=== PATIENT | male | born 1990 | race Caucasian/White ===

== ENCOUNTER 2018-12-25 22:23 | Emergency (ER) | payer OTHER, MEDICAID ==
[2018-12-25 23:36] LABS: ADD MAN DIFF? NO
[2018-12-25 23:39] LABS: WHITE BLOOD COUNT 14.7 10^3/ul (4.8-10.8)
[2018-12-25 23:39] LABS: BASOPHIL # 0.1 10^3/ul (0.0-0.1); BASOPHILS % 0.3 % (0.0-2.0); EOSINOPHILS # 0.1 10^3/ul (0.0-0.5); EOSINOPHILS % 0.8 % (0.0-7.0); HEMATOCRIT 45.9 % (42.0-52.0); HEMOGLOBIN 15.5 g/dl (14.0-18.0); LYMPHOCYTES # 4.5 10^3/ul (0.8-2.9); LYMPHOCYTES % 30.6 % (15.0-51.0); MEAN CORPUSCULAR HEMOGLOBIN 31.3 pg (29.0-33.0); MEAN CORPUSCULAR HGB CONC 33.8 g/dl (32.0-37.0); MEAN CORPUSCULAR VOLUME 92.7 fl (82.0-101.0); MEAN PLATELET VOLUME 9.7 fl (7.4-10.4); MONOCYTES % 6.9 % (0.0-11.0); NEUTROPHIL # 8.9 10^3/ul (1.6-7.5); PLATELET COUNT 342 10^3/UL (140-415); RED BLOOD COUNT 4.95 10^6/ul (4.70-6.10); RED CELL DISTRIBUTION WIDTH 13.4 % (11.5-14.5)
[2018-12-25] MEDS: ONDANSETRON 4 MG INJ IV (23:47)
[2018-12-25] MEDS: morphine 4 MG/ML VIAL IV (23:47)
[2018-12-25] MEDS: SOD CHLORIDE 0.9% 1,000 ML IV (23:48)
[2018-12-25 23:58] LABS: INR 0.89; PROTIME 12.1 Sec (11.9-14.9); PT RATIO 0.9
[2018-12-25 23:59] LABS: PARTIAL THROMBOPLASTIN TIME 32.8 Sec (23.0-35.0)
[2018-12-26 00:02] LABS: ALANINE AMINOTRANSFERASE 32 IU/L (13-69); ALBUMIN 4.7 g/dl (3.3-4.9); ALBUMIN/GLOBULIN RATIO 1.42; ALKALINE PHOSPHATASE 64 IU/L (42-121); ANION GAP 10 (5-13); ASPARTATE AMINO TRANSFERASE 31 IU/L (15-46); BILIRUBIN,INDIRECT 0.3 mg/dl (0-1.1); BILIRUBIN,TOTAL 0.3 mg/dl (0.2-1.3); BLOOD UREA NITROGEN 21 mg/dl (7-20); CALCIUM 9.6 mg/dl (8.4-10.2); CARBON DIOXIDE 22 mmol/L (21-31); CHLORIDE 108 mmol/L (97-110); CREATININE 0.86 mg/dl (0.61-1.24); Estimated GFR > 60 mL/min (>60); GLUCOSE 106 mg/dl (70-220); LIPASE 158 U/L (23-300); POTASSIUM 3.9 mmol/L (3.5-5.1); SODIUM 140 mmol/L (135-144)
[2018-12-26] MEDS ORDERED: SOD CHLORIDE 0.9% 100 ML (00:18)
[2018-12-26] MEDS ORDERED: IOHEXOL 300MG/ML 150 ML BTL (00:18)
[2018-12-26] MEDS: ACETAMINOPHEN 500 MG TAB PO (02:23)
== END 2018-12-26 02:35 | disposition home or self-care (01) ==
LOC: E/R 12-26 02:35
DX: S30.1XXA Contusion of abdominal wall, initial encounter (principal); S00.83XA Contusion of other part of head, initial encounter; S20.219A Contusion of unspecified front wall of thorax, initial encounter; F17.210 Nicotine dependence, cigarettes, uncomplicated; R40.2142 Coma scale, eyes open, spontaneous, at arrival to emergency department; R40.2252 Coma scale, best verbal response, oriented, at arrival to emergency department; R40.2362 Coma scale, best motor response, obeys commands, at arrival to emergency department; Y04.2XXA Assault by strike against or bumped into by another person, initial encounter
CPT/HCPCS: 36415; 70450; 71260; 73030; 74177; 80053; 83690; 85025; 85610; 85730; 96374; 96375; 99285-25